=== PATIENT | male | born 1970 | race Caucasian/White ===

== ENCOUNTER 2017-11-09 12:44 | Emergency (ER) | payer MEDICAID, OTHER ==
[~2017-11-09] VITALS: Ht 180.3 cm; Wt 100.0 kg
[2017-11-09] MEDS ORDERED: PERM60CR19 TP (14:58)
[2017-11-09 15:06] VITALS: BP 135/86
== END 2017-11-09 15:07 | disposition home or self-care (01) ==
LOC: ER 12:45
DX: B86 Scabies (principal)
CPT/HCPCS: 99283

== ENCOUNTER 2017-11-16 16:22 | Emergency (ER) | payer MEDICAID, OTHER ==
[~2017-11-16 16:22] MED LIST: PERM60CR19 TP
[2017-11-17] MEDS ORDERED: PERM60CR19 TP (09:43)
[2017-11-17] MEDS ORDERED: PANT40TA4 PO (09:43)
== END 2017-11-16 17:05 | disposition left against medical advice (07) ==
LOC: ER 16:23
DX: B86 Scabies (principal); Z53.21 Procedure and treatment not carried out due to patient leaving prior to being seen by health care provider

== ENCOUNTER 2017-11-16 17:42 | Emergency (ER) | payer MEDICAID, OTHER ==
[2017-11-17] MEDS ORDERED: PERM60CR19 TP (09:43)
[2017-11-17] MEDS ORDERED: PANT40TA4 PO (09:43)
== END 2017-11-16 18:55 | disposition left against medical advice (07) ==
LOC: ER 17:42
DX: B86 Scabies (principal); Z53.21 Procedure and treatment not carried out due to patient leaving prior to being seen by health care provider

== ENCOUNTER 2017-11-17 08:54 | Emergency (ER) | payer MEDICAID ==
[~2017-11-17] VITALS: Ht 180.3 cm; Wt 100.0 kg
[2017-11-17 09:30] VITALS: BP 117/68
[2017-11-17] MEDS ORDERED: PANT40TA4 PO (09:43)
[2017-11-17] MEDS ORDERED: PERM60CR19 TP (09:43)
== END 2017-11-17 10:31 | disposition home or self-care (01) ==
LOC: ER 08:54
DX: B86 Scabies (principal); K21.9 Gastro-esophageal reflux disease without esophagitis; Z79.899 Other long term (current) drug therapy
CPT/HCPCS: 99283

== ENCOUNTER 2017-11-25 08:25 | Emergency (ER) | payer MEDICAID, OTHER ==
[~2017-11-25] VITALS: Ht 180.3 cm; Wt 96.3 kg
[~2017-11-25 08:25] MED LIST changes: +PANT40TA4 PO
[2017-11-25 08:26] VITALS: BP 143/40
[2017-11-25] MEDS ORDERED: PERM60CR19 TP (08:51)
[2017-11-25] MEDS ORDERED: PRED20TA PO (08:51)
== END 2017-11-25 09:09 | disposition home or self-care (01) ==
LOC: ER 08:26
DX: B86 Scabies (principal); K21.9 Gastro-esophageal reflux disease without esophagitis
CPT/HCPCS: 99283

== ENCOUNTER 2018-05-31 16:25 | Emergency (ER) | payer MEDICAID, OTHER ==
[~2018-05-31] VITALS: Ht 180.3 cm; Wt 97.0 kg
[~2018-05-31 16:25] MED LIST changes: -PERM60CR19 TP
[2018-05-31 16:26] VITALS: BP 128/75
[2018-05-31] MEDS ORDERED: POLOS EACHEYE (16:40)
== END 2018-05-31 17:06 | disposition home or self-care (01) ==
LOC: ER 16:25
DX: H10.89 Other conjunctivitis (principal); B96.89 Other specified bacterial agents as the cause of diseases classified elsewhere; K21.9 Gastro-esophageal reflux disease without esophagitis; Z79.899 Other long term (current) drug therapy
CPT/HCPCS: 99283